=== PATIENT | male | born 1995 | race Caucasian/White ===

== ENCOUNTER 2019-04-08 08:24 | Emergency (ER) | payer OTHER ==
[~2019-04-08] VITALS: Ht 172.7 cm; Wt 95.8 kg
[~2019-04-08 08:24] MED LIST: DOCU-299 PO; HYDR-5123 PO
--- NOTE | 2019-04-08 08:27 | NUR ---
PT TO ER BED 7
[2019-04-08 08:30] VITALS: BP 134/72
--- NOTE | 2019-04-08 08:38 | NUR ---
DR WILKERSON AT BEDSIDE FOR PT EVALUATION
--- NOTE | 2019-04-08 08:40 | NUR ---
BIB . AAO X4 C/O UPPER ABD PAIN X2 DAYS. PT REPORTS CONSTANT SHARP PAIN AT 8/10 ACROSS UPPER ABD. TX OMEPRAZOLE AT MIDNIGHT BUT WAS UNABLE TO KEEP IT DOWN. +N/V. VOMITTED TODAY WITH YELLOW OUTPUT. -DIARRHEA. DENIES FEVER. LAST BM 2 HOURS AGO. PT REPORTS EATING SHRIMP AT [employer] WITH 2 BEERS ON MONDAY AFTERNOON. RUQ 6/10 PAIN UPON PALAPATION. HOB UP. BED SIDE RAILS UP X1. ON LOW BED POSITION, LOCKED. ER TO EVALUATE PT.
--- NOTE | 2019-04-08 09:13 | NUR ---
PT UNABLE TO GIVE URINE AT THIS TIME.
--- NOTE | 2019-04-08 09:40 | NUR ---
PT ASLEEP. AROUSABLE TO NAME. AAO X4 FULL CLEAR SPEECH. NO SIGNS AND SYMPTOMS OF DISTRESS NOTED.
[2019-04-08 10:12] LABS: APPEARANCE,URINE CLEAR (CLEAR); BILIRUBIN,URINE NEGATIVE (NEGATIVE); BLOOD, URINE NEGATIVE (NEGATIVE); COLOR,URINE YELLOW (YELLOW); LEUKOCYTE ESTERASE ,URINE NEGATIVE (NEGATIVE); NITRITE, URINE NEGATIVE (NEGATIVE); UGLUCOSE NEGATIVE (NEGATIVE)
[2019-04-08] MEDS ORDERED: NACL 0.9% 1,000 ML IV SCH (10:14)
[2019-04-08] MEDS ORDERED: NACL 0.9% 1,000 ML IV ONE (10:14)
[2019-04-08] MEDS ORDERED: PROMETHAZINE 25 MG/ML VIAL IM ONE (10:15)
[2019-04-08] MEDS ORDERED: KETOROLAC 30 MG/ML VIAL IVP ONE (10:15)
[2019-04-08] MEDS ORDERED: MORPHINE SULFATE 4 MG/ML SYR IVP ONE (10:15)
[2019-04-08 10:21] LABS: BARBITURATE, URINE NEG. ng/ml (NEG <=200); BENZODIAZEPINE, URINE NEG. ng/mL (NEG <=200); CANNABINOID, URINE POS. ng/mL (NEG <=50); COCAINE, URINE NEG. ng/mL (NEG <=300); OPIATE, URINE NEG. ng/mL (NEG <=2000); PHENCYCLIDINE SCREEN,URINE NEG. ng/mL (NEG <=25)
[2019-04-08 10:36] LABS: BASOPHILS % (AUTO) 0.1 % (0.0-2.0); HEMATOCRIT 45.8 % (36-52); HEMOGLOBIN 15.8 g/dL (12.0-18.0); LYMPHOCYTES # (AUTO) 0.8 K/uL (2.0-11.5); LYMPHOCYTES % (AUTO) 6.1 % (20.5-51.1); MEAN CORPUSCULAR HEMOGLOBIN 31 pg (27-31); MEAN CORPUSCULAR HGB CONC 35 g/dL (33-37); MEAN CORPUSCULAR VOLUME 89.6 fL (80-94); MONOCYTES # (AUTO) 0.5 K/uL (0.8-1.0); MONOCYTES % (AUTO) 3.6 % (1.7-9.3); NEUTROPHILS # (AUTO) 11.5 K/uL (1.8-7.7); NEUTROPHILS % (AUTO) 90.2 % (42.2-75.2); PLATELET COUNT (AUTO) 218 K/uL (140-450); RED BLOOD CELL COUNT(AUTO) 5.11 MIL/uL (4.20-6.10); RED CELL DISTRIBUTION WIDTH 12.5 % (11.6-13.7); WHITE BLOOD COUNT (AUTO) 12.7 K/uL (4.8-10.8)
[2019-04-08 10:47] LABS: ANION GAP 13.8 (8-16); CHLORIDE 101 mmol/L (98-107); CREATININE 0.9 mg/dL (0.7-1.3); GFR ARICAN-AMERICAN 133 mL/min (>90); GLUCOSE 128 mg/dL (74-106); POTASSIUM 3.8 mmol/L (3.5-5.1); SODIUM SERUM 139 mmol/L (136-145); UREA NITROGEN, BLOOD 10 mg/dL (7-18)
[2019-04-08 10:54] LABS: ALBUMIN 4.2 g/dL (3.4-5.0); AMYLASE 45 U/L (25-115); ASPARTATE AMINOTRANSFERASE 23 U/L (15-37); GAMMA GLUTAMYL TRANSFERASE 29 U/L (7-51); LIPASE 147 U/L (73-393); TOTAL BILIRUBIN 0.4 mg/dL (0.0-1.0)
--- NOTE | 2019-04-08 11:11 | NUR ---
PT TAKEN TO CT AT THIS TIME
[2019-04-08] MEDS ORDERED: HALOPERIDOL IM 5 MG/ML VIAL IM ONE (12:10)
[2019-04-08] MEDS ORDERED: diphenhydrAMINE 50 MG/ML VIAL IVP ONE (12:10)
--- NOTE | 2019-04-08 12:30 | NUR ---
PT SITTING UP. CONVERSATING APPROPRIATELY. FULL CLEAR SPEECH. NO SIGNS AND SYMPTOMS OF DISTRESS NOTED.
[2019-04-08 14:57] VITALS: BP 129/85
--- NOTE | 2019-04-08 14:57 | NUR ---
Patient discharged with v/s stable. Written and verbal after care instructions given and explained. Patient alert, oriented and verbalized understanding of instructions. Ambulatory with steady gait. All questions addressed prior to discharge. ID band removed. Patient advised to follow up with PMD. Rx of Cindy Connors given. Patient educated on indication of medication including possible reaction and side effects. Opportunity to ask questions provided and answered.
--- NOTE | 2019-04-11 12:17 | NUR ---
Late entry. Confirmed with RN that 0.9 NS 100 ml/hr infused until discharge. Completed at 1455.
== END 2019-04-08 14:57 | disposition home or self-care (01) ==
LOC: MED 08:24
DX: K59.09 Other constipation (principal); R11.2 Nausea with vomiting, unspecified; R74.8 Abnormal levels of other serum enzymes; Z90.49 Acquired absence of other specified parts of digestive tract; Z79.891 Long term (current) use of opiate analgesic; Z79.899 Other long term (current) drug therapy; Z88.0 Allergy status to penicillin
CPT/HCPCS: 36415; 74176; 76705; 80053; 80305; 81003; 82150; 82977; 83690; 85025; 96361; 96372; 96374; 96375; 99284; G0482; J1200; J1630; J1885; J2270; J2550; J7030; Q0092

== ENCOUNTER 2023-03-23 13:02 | Emergency (ER) | payer OTHER ==
[~2023-03-23] VITALS: Ht 172.7 cm; Wt 104.4 kg
[~2023-03-23 13:02] MED LIST changes: +HYDR-5080 PO; -HYDR-5123 PO
[2023-03-23 13:36] VITALS: BP 147/93
[2023-03-23] MEDS ORDERED: ACETAMINOPHEN 325 MG TAB PO ONE (14:25)
[2023-03-23] MEDS ORDERED: ACETAMINOPHEN 325 MG TAB ONE ×2 (16:47→17:22)
--- NOTE | 2023-03-23 17:45 | NUR ---
Patient discharged with v/s stable. Written and verbal after care instructions given and explained. Patient verbalized understanding. Ambulatory with steady gait. All questions addressed prior to discharge. Advised to follow up with PMD. PT. STABLE FOR D/C. NO ACUTE DISTRESS. STATES FEELING BETTER. PT. IS AWAKE AND ALERT. NO SOB. NO WOUNDS NOTED. D/C HOME WITH FAMALE FRIEND.
== END 2023-03-23 17:45 | disposition home or self-care (01) ==
LOC: MED 13:02
DX: S80.812A Abrasion, left lower leg, initial encounter (principal); R03.0 Elevated blood-pressure reading, without diagnosis of hypertension; Z88.0 Allergy status to penicillin; V49.88XA Car occupant (driver) (passenger) injured in other specified transport accidents, initial encounter; Y93.89 Activity, other specified; Y92.89 Other specified places as the place of occurrence of the external cause; Y99.8 Other external cause status
CPT/HCPCS: 73590; 99283